=== PATIENT | male | born 1990 | race Caucasian/White ===

== ENCOUNTER → 2017-11-02 | Outpatient (CLI) | payer OTHER ==
[~2017-11-02] VITALS: Ht 188 cm; Wt 93.0 kg
[~2017-11-02] MED LIST: ADDERALL 30 MG30 MG PO; ALEVE220 MG PO; BACLOFEN20 MG PO; CELEBREX 200 M200 MG PO; CONCERTA PO; FLEXERIL PO; HYDROCODONE-AP1 EA11 PO; HYDROCODONE-AP1 EAC6 PO; IBUPROFEN 200200 M1 PO; LIORESAL 10 MG10 MG PO; MEDROLDOSEPACK PO; NORCO 5-325 TA1 EACH PO; SKELAXIN 800 M800 M1 PO; VALIUM5 MG PO; ZIPSOR25 MG PO; ZOLOFT25 MG PO
--- NOTE | ~2017-11-02 | HPC ---
[facility] [place] [address] PAIN MANAGEMENT CONSULTATION Name: YENNIFER DEMPSEY [facility] [id number] Admission: 11/02/17 Attend Phys: Bernard Carlson DO Discharge: Date of : 89 Report #: [id number] THIS REPORT FOR: //name// CC: Mat Carlson DATE OF SERVICE: 11/02/2017 The patient is a 27-year-old gentleman, he was prior seen exactly 2 years ago on 11/02/2015, diagnosed at that time with component of myofascial pain. We talked about trigger points at that time. He had prior had a lumbar epidural injection back in 2014 for ongoing radicular symptoms. He returns to pain clinic today after a 2-year hiatus. He notes pain has recurred, low back, posterior leg with paresthesia, no weakness. Pain is in the left leg. Rates it a 5 on a Visual Analog Scale. It is exacerbated with bending and twisting. PHYSICAL EXAMINATION: Shows a 27-year-old gentleman, BMI is 26.3 kg per meter squared. Vital signs are stable. Rises from the chair using armrest, moderately antalgic gait, positive straight leg raise at 30 degrees on the left. Patellar reflex is diminished compared to the right, which is fairly brisk 2+/4, left is 1/4. Achilles reflexes are symmetric. Lumbar flexion is limited to 80 degrees. Some diffuse tenderness across the low back. No discrete trigger points are noted. DIAGNOSTIC STUDIES: There are no recent diagnostic studies available for evaluation at this time. ASSESSMENT: Symptomatic lumbar radiculopathy by clinical exam and history. RECOMMENDATIONS: We will seek authorization for epidural injection under fluoroscopy at next visit. Again, had 80% relief for a number of years following prior injections x 2 in November and again 08/2015. Discharged in good and stable condition. We will seek authorization for epidural injection L4-L5 next visit. <ELECTRONICALLY SIGNED> By: Bernard Carlson DO 11/05/17 0715 [id number] [id number] Bernard Carlson DO /nt
[2017-11-02 11:10] VITALS: BP 115/64
== END ==
LOC: PAIN 07:07
DX: M54.16 Radiculopathy, lumbar region (principal); M79.1 Myalgia

== ENCOUNTER → 2017-11-12 | Outpatient (CLI) | payer OTHER ==
[~2017-11-12] VITALS: Ht 188 cm; Wt 93.4 kg
--- NOTE | ~2017-11-12 | HPC ---
[facility] [place] [address] PAIN MANAGEMENT CONSULTATION Name: KEYENNIFERMatthew DELAROSA [facility] #: [facility] [id number] Admission: 11/12/17 Attend Phys: Bernard Carlson DO Discharge: Date of : 89 Report #: [id number] THIS REPORT FOR: //name// CC: Mat Carlson The patient is a very pleasant 27-year-old gentleman, prior seen in the pain clinic on 11/02/2017 diagnosed with symptomatic lumbar radiculopathy. We sought authorization for repeat epidural injection (prior injection had been in 2014). Authorization was received, the patient presents to the pain clinic today for fluoroscopic guided epidural injection. Notes pain still interferes with function, needs to decrease physical activity. Rates his pain a 2 on a VAS at present and gets up to a 6 with activity. BMI is 26.4 kilograms per meter squared. Vital signs are stable. Pain is in a consistent pattern, low back and left leg. ASSESSMENT: Symptomatic lumbar radiculopathy. PROCEDURE: Lumbar epidural injection under fluoroscopy. PROCEDURE NOTE: After both written and informed consent to include risk of spinal cord damage, increased pain, weakness and dural puncture, the patient was taken to the fluoroscopy suite, placed in the prone position. After sterile prep and drape, a skin wheal with lidocaine was raised. A 22-gauge epidural Tuohy needle was inserted in the midline at L5-S1 with good loss to resistance. Negative aspiration for cerebrospinal fluid or blood was noted. Then 1 mL of Omnipaque under biplanar fluoroscopy showed good spread within the epidural space. This was followed with 80 mg of triamcinolone plus 1 mL of 1.5% preservative-free Xylocaine, 0.5 mL Xylocaine was then injected to flush the needle; it was removed. The patient was monitored for an appropriate period of time and discharged in good and stable condition. Follow up in 2 weeks for reevaluation. Cancel if well. <ELECTRONICALLY SIGNED> By: Bernard Carlson DO 11/14/17 0724 [id number] Bernard Carlson DO /nt
[2017-11-12 14:53] VITALS: BP 125/65
== END | disposition home or self-care (01) ==
LOC: PAIN 07:44
DX: M54.16 Radiculopathy, lumbar region (principal)